=== PATIENT | female | born 1975 | race Caucasian/White ===

== ENCOUNTER 2019-02-04 05:39 | Day surgery (SDC) | payer OTHER ==
[2019-02-04] MEDS: ACETAMINOPHEN 500 MG TAB PO (06:16)
[2019-02-04] MEDS: LACTATED RINGER'S 1,000 ML IV* (06:16)
[2019-02-04] MEDS ORDERED: LIDOCAINE 2% (SDV) 5 ML INJ (07:00)
[2019-02-04] MEDS ORDERED: FAMOTIDINE 20 MG INJ (07:22)
[2019-02-04] MEDS ORDERED: MIDAZOLAM 1 MG/ML 2 ML INJ (07:22)
[2019-02-04] MEDS ORDERED: PROPOFOL 40 ML (07:22)
[2019-02-04] MEDS ORDERED: CEFAZOLIN 1 GM INJ (07:25)
[2019-02-04] MEDS ORDERED: FENTAnyl 50 MCG/ML VIAL (07:25)
[2019-02-04] MEDS ORDERED: ONDANSETRON 4 MG INJ IV (07:30)
[2019-02-04] MEDS ORDERED: DIPHENHYDRAMINE 50 MG INJ IV (07:30)
[2019-02-04] MEDS ORDERED: MEPERIDINE 25 MG INJ IV (07:30)
[2019-02-04] MEDS ORDERED: HYDROmorphONE 1 MG/5 ML IV SYRINGE IV (07:30)
[2019-02-04] MEDS ORDERED: morphine (1 MG/ML) 10ML SYRINGE IV ×2 (07:30)
[2019-02-04] MEDS ORDERED: FENTAnyl 50 MCG/ML VIAL IV ×2 (07:30)
[2019-02-04] MEDS ORDERED: ALBUTEROL 0.083% (NEB) 2.5 MG/3 ML AMP HHN (07:30)
[2019-02-04] MEDS ORDERED: OXYCODONE/ACETAMINOPHEN (5/325) TAB PO (07:30)
[2019-02-04] MEDS ORDERED: LABETALOL HCL 20MG INJ IV (07:30)
[2019-02-04] MEDS ORDERED: ONDANSETRON 4 MG INJ (07:32)
[2019-02-04] MEDS ORDERED: DEXAMETHASONE 4 MG/ML 5 ML INJ (07:32)
[2019-02-04] MEDS ORDERED: HYDROCODONE/APAP (7.5/325) TAB PO (08:30)
[2019-02-04] MEDS: HYDROmorphONE 1 MG/5 ML IV SYRINGE IV ×2 (08:54→09:09)
[2019-02-04] MEDS: OXYCODONE/ACETAMINOPHEN (5/325) TAB PO (10:11)
== END 2019-02-04 10:40 | disposition home or self-care (01) ==
LOC: SDS 05:39
DX: D25.9 Leiomyoma of uterus, unspecified (principal); N92.0 Excessive and frequent menstruation with regular cycle; I10 Essential (primary) hypertension; K21.9 Gastro-esophageal reflux disease without esophagitis; E66.9 Obesity, unspecified
CPT/HCPCS: 58563; 84703